=== PATIENT | male | born 1950 | race Caucasian/White ===

== ENCOUNTER 2022-09-23 02:22 | Emergency (ER) | payer OTHER, MEDICAID ==
[~2022-09-23] VITALS: Ht 177.8 cm; Wt 83.9 kg
[2022-09-23 02:27] VITALS: BP_SYST 140
[2022-09-23] MEDS ORDERED: MECLIZINE HCL 25 MG TABLET (ANITVERT) PO ONE (03:00)
[2022-09-23] MEDS ORDERED: ONDANSETRON HCL 4 MG/2 ML VIAL IVP ONE (03:00)
[2022-09-23 03:07] LABS: BASOPHILS # (AUTO) 0.1 K/uL (0.0-0.2); BASOPHILS % (AUTO) 0.7 % (0.0-2.0); EOSINOPHILS # (AUTO) 0.1 K/uL (0.0-0.4); EOSINOPHILS % (AUTO) 1.5 % (0.0-4.0); HEMATOCRIT 45.1 % (36-54); HEMOGLOBIN 14.7 g/dL (14.0-18.0); LYMPHOCYTES # (AUTO) 1.5 K/uL (1.0-5.5); LYMPHOCYTES % (AUTO) 20.1 % (20.5-51.5); MEAN CORPUSCULAR HEMOGLOBIN 27 pg (27-31); MEAN CORPUSCULAR HGB CONC 33 % (32-36); MEAN CORPUSCULAR VOLUME 82 fL (79.0-98.0); MONOCYTES # (AUTO) 0.5 K/uL (0.0-1.0); MONOCYTES % (AUTO) 6.2 % (1.7-9.3); NEUTROPHILS # (AUTO) 5.5 K/uL (1.8-7.7); NEUTROPHILS % (AUTO) 71.5 % (40.0-70.0); PLATELET COUNT (AUTO) 215 K/uL (130-430); RED BLOOD CELL COUNT(AUTO) 5.53 MIL/uL (4.2-6.2); RED CELL DISTRIBUTION WIDTH 14.5 % (9.0-15.0); WHITE BLOOD COUNT (AUTO) 7.7 K/uL (4.8-10.8)
[2022-09-23] MEDS ORDERED: iohexoL 350 mgI/mL, 100 ML INFUS..BTL IV ONE (03:12)
[2022-09-23 03:48] LABS: BILIRUBIN,URINE NEGATIVE (NEGATIVE); BLOOD, URINE NEGATIVE (NEGATIVE); CLARITY/URINE CLEAR (CLEAR); COLOR,URINE YELLOW (YELLOW); GLUCOSE,URINE NEGATIVE (NEGATIVE); KETONES,URINE NEGATIVE (NEGATIVE); LEUKOCYTE ESTERASE ,URINE NEGATIVE (NEGATIVE); NITRITE, URINE NEGATIVE (NEGATIVE); PH,URINE 5.5 (5.0-8.0); PROTEIN URINE NEGATIVE (NEGATIVE); UROBILINOGEN,URINE 0.2 (0.2-1.0)
[2022-09-23] MEDS ORDERED: DIPHENHYDRAMINE INJ 50 MG/ML VIAL IVP ONE (04:00)
[2022-09-23] MEDS ORDERED: METOCLOPRAMIDE HCL 10 MG/2 ML VIAL IVP ONE (04:00)
[2022-09-23] MEDS ORDERED: LISI-209 PO (04:03)
[2022-09-23] MEDS ORDERED: TOPXL100 PO (04:03)
[2022-09-23] MEDS ORDERED: FURO-150 PO (04:05)
[2022-09-23] MEDS ORDERED: WARF-66 PO (04:05)
[2022-09-23] MEDS ORDERED: POTA-197 PO (04:05)
[2022-09-23] MEDS ORDERED: ROSU20TA2 PO (04:05)
[2022-09-23 04:07] LABS: BARBITURATE, URINE NEGATIVE (NEG <=200); BENZODIAZEPINE, URINE NEGATIVE (NEG <=150); CANNABINOID, URINE NEGATIVE (NEG <=50); COCAINE, URINE NEGATIVE (NEG <=150); METHAMPHETAMINES SCREEN,URINE NEGATIVE (NEG <=500); OPIATE, URINE NEGATIVE (NEG <=100); PHENCYCLIDINE SCREEN,URINE NEGATIVE (NEG <=25); UR TRICYCLIC ANTIDEPRESSANTS NEGATIVE (NEG <=300); URINE AMPHETAMINE NEGATIVE (NEG <=500); URINE METHADONE NEGATIVE (NEG <=200); URINE OXYCODONE SCREEN NEGATIVE (NEG <=100); URINE PROPOXYPHENE SCREEN NEGATIVE (NEG <=300)
[2022-09-23 04:13] LABS: CALCIUM 8.2 mg/dL (8.4-11.0); CREATININE 1.25 mg/dL (0.55-1.30)
[2022-09-23 04:14] LABS: INR 3.3 (0.80-1.20)
[2022-09-23 04:17] LABS: ALBUMIN 3.2 g/dL (3.4-4.8); PROTHROMBIN TIME 31.9 SECS (9.5-12.5); TOTAL BILIRUBIN 0.3 mg/dL (0.0-1.0)
[2022-09-23 10:52] VITALS: BP_SYST 115
== END 2022-09-23 10:59 | disposition short-term general hospital (02) ==
LOC: SED 02:22
DX: R42 Dizziness and giddiness (principal); R11.0 Nausea; Z86.73 Personal history of transient ischemic attack (TIA), and cerebral infarction without residual deficits; Z86.79 Personal history of other diseases of the circulatory system; Z79.01 Long term (current) use of anticoagulants; Z79.899 Other long term (current) drug therapy; Z20.822 Contact with and (suspected) exposure to COVID-19
CPT/HCPCS: 99285; 70496; 96374; 71045; 96375; 87426; 80061; 80307; 80053; 82962; 85025; 85610; 85730; 86886; 86900; 86901; 36415; 93005; 70498; 81003; 70450; 76376; J8597; Q9967; J1200; J2765; J2405

== ENCOUNTER 2022-11-06 11:07 | Emergency (ER) | payer OTHER, MEDICAID ==
[~2022-11-06] VITALS: Ht 180.3 cm; Wt 90.7 kg
[2022-11-06 11:07] VITALS: BP_SYST 193; PULSE 62; RESP 18; TEMP 98; O2SAT 97
[~2022-11-06 11:07] MED LIST: FURO-150 PO; LISI-209 PO; POTA-197 PO; ROSU20TA2 PO; TOPXL100 PO; WARF-66 PO
--- NOTE | 2022-11-06 11:13 | NUR ---
ER at bedside examining patient.
--- NOTE | 2022-11-06 11:14 | NUR ---
accucheck machine shut down malfunction previous to pt departure to CT.
--- NOTE | 2022-11-06 11:15 | NUR ---
pt transferred to CT via [facility] accompanied by RN
[2022-11-06] MEDS ORDERED: iohexoL 350 mgI/mL, 100 ML INFUS..BTL IV ONE (11:22)
--- NOTE | 2022-11-06 11:33 | NUR ---
Patient returned from CT and IV started, Blood sugar obtained, ECG completed and MD reevaluated. NIHSS completed and swallow exam is OK at this time.
--- NOTE | 2022-11-06 11:34 | NUR ---
TELENEURO EVAL REQUESTED, ORDERED BY DR. CLOUD
--- NOTE | 2022-11-06 11:45 | NUR ---
Labs drawn and patient remains stable with slight improvement and increased focus at this time. Discussed with patient's and his daughter by phone patient's previous strokes. Information relayed to MD at this time.
[2022-11-06 11:54] LABS: BASOPHILS % (AUTO) 0.7 % (0.0-2.0); EOSINOPHILS # (AUTO) 0.2 K/uL (0.0-0.4); EOSINOPHILS % (AUTO) 3.5 % (0.0-4.0); HEMATOCRIT 39.8 % (36-54); HEMOGLOBIN 12.7 g/dL (14.0-18.0); LYMPHOCYTES # (AUTO) 1.6 K/uL (1.0-5.5); LYMPHOCYTES % (AUTO) 26.1 % (20.5-51.5); MEAN CORPUSCULAR HEMOGLOBIN 26 pg (27-31); MEAN CORPUSCULAR HGB CONC 32 % (32-36); MEAN CORPUSCULAR VOLUME 82 fL (79.0-98.0); MONOCYTES # (AUTO) 0.7 K/uL (0.0-1.0); MONOCYTES % (AUTO) 11.3 % (1.7-9.3); NEUTROPHILS # (AUTO) 3.6 K/uL (1.8-7.7); NEUTROPHILS % (AUTO) 58.4 % (40.0-70.0); PLATELET COUNT (AUTO) 227 K/uL (130-430); RED BLOOD CELL COUNT(AUTO) 4.87 MIL/uL (4.2-6.2); RED CELL DISTRIBUTION WIDTH 13.8 % (9.0-15.0); WHITE BLOOD COUNT (AUTO) 6.2 K/uL (4.8-10.8)
--- NOTE | 2022-11-06 12:00 | NUR ---
Patient improved from initial right sided facial droop noted by . RN noticed difficulty with patient's ambulation, and right side stability but as several minutes went on, patient seems to have resolved back to patient's baseline.
[2022-11-06 12:04] LABS: ANION GAP 6 (5-15); CHLORIDE 101 mmol/L (98-107); CREATININE 1.41 mg/dL (0.55-1.30); GLUCOSE 97 mg/dL (74-106); UREA NITROGEN, BLOOD 27 mg/dL (8-21)
[2022-11-06 12:08] LABS: GFR AFRICAN AMERICAN 64 mL/min (>90)
[2022-11-06 12:11] LABS: ALANINE AMINOTRANSFERASE 18 U/L (12-78); ALBUMIN 2.8 g/dL (3.4-4.8); ASPARTATE AMINOTRANSFERASE 20 U/L (10-37); TOTAL BILIRUBIN 0.3 mg/dL (0.0-1.0)
[2022-11-06 12:15] LABS: ALCOHOL, BLOOD < 3 mg/dL (<10)
--- NOTE | 2022-11-06 12:15 | NUR ---
NIHSS exam repeated with student nurses and found no changes since initial test.
[2022-11-06 12:28] LABS: INR 4.1 (0.80-1.20); PROTHROMBIN TIME 39.9 SECS (9.5-12.5)
[2022-11-06 12:45] VITALS: TEMP 97.6
--- NOTE | 2022-11-06 13:00 | NUR ---
Patient remains stable at this time. Patient's at bedside; chatted with to give her an update. Patient still awake and alert with no noticable changes at this time.
--- NOTE | 2022-11-06 14:00 | NUR ---
RN assisted patient to use urinal. Urine obtained and sent to lab for testing.
--- NOTE | 2022-11-06 15:00 | NUR ---
Spoke to patient's and answered additional questions about transfer to [place]. Patient states he feels ok at this time.
--- NOTE | 2022-11-06 15:15 | NUR ---
TRANSFER INFO DUNIA CASTANEDA RM: [id number] [phone] [facility] ETA [id number]
[2022-11-06] MEDS ORDERED: ASPIRIN 325 MG TABLET ONE (15:25)
[2022-11-06 15:29] LABS: BILIRUBIN,URINE NEGATIVE (NEGATIVE); BLOOD, URINE NEGATIVE (NEGATIVE); CLARITY/URINE CLEAR (CLEAR); COLOR,URINE YELLOW (YELLOW); GLUCOSE,URINE NEGATIVE (NEGATIVE); KETONES,URINE NEGATIVE (NEGATIVE); LEUKOCYTE ESTERASE ,URINE NEGATIVE (NEGATIVE); NITRITE, URINE NEGATIVE (NEGATIVE); PH,URINE 7.5 (5.0-8.0); PROTEIN URINE NEGATIVE (NEGATIVE); UROBILINOGEN,URINE 0.2 (0.2-1.0)
[2022-11-06] MEDS ORDERED: ASPIRIN 325 MG TABLET PO ONE (15:30)
--- NOTE | 2022-11-06 15:39 | NUR ---
Patient to be transferred to [facility]. Is being transferred due to higher level of care. Receiving facility has accepting physician and available space. ER physician has signed transfer form. Patient or responsible green party has agreed to transfer and signed form. Patient belongings inventoried and will be sent with patient. Copy of nursing notes, lab reports, EKG, Physicians Orders and X-rays to be sent with patient. Report called to JESSICA Galvez at receiving facility. Receiving physician is Dr. Elton Caldwell. [facility] ambulance service has been called for transfer. ETA is [id number].
[2022-11-06 16:26] LABS: BARBITURATE, URINE NEGATIVE (NEG <=200); BENZODIAZEPINE, URINE NEGATIVE (NEG <=150); CANNABINOID, URINE NEGATIVE (NEG <=50); COCAINE, URINE NEGATIVE (NEG <=150); METHAMPHETAMINES SCREEN,URINE NEGATIVE (NEG <=500); OPIATE, URINE NEGATIVE (NEG <=100); PHENCYCLIDINE SCREEN,URINE NEGATIVE (NEG <=25); UR TRICYCLIC ANTIDEPRESSANTS NEGATIVE (NEG <=300); URINE AMPHETAMINE NEGATIVE (NEG <=500); URINE METHADONE NEGATIVE (NEG <=200); URINE OXYCODONE SCREEN NEGATIVE (NEG <=100); URINE PROPOXYPHENE SCREEN NEGATIVE (NEG <=300)
[2022-11-06 16:32] VITALS: BP_SYST 160; PULSE 68; RESP 18; O2SAT 96
--- NOTE | 2022-11-06 16:35 | NUR ---
Patient transferred by ambulance to [facility] at this time.
== END 2022-11-06 16:35 | disposition short-term general hospital (02) ==
LOC: SED 11:07
DX: I63.9 Cerebral infarction, unspecified (principal); I48.20 Chronic atrial fibrillation, unspecified; N18.9 Chronic kidney disease, unspecified; M62.81 Muscle weakness (generalized); Z79.899 Other long term (current) drug therapy; Z20.822 Contact with and (suspected) exposure to COVID-19
CPT/HCPCS: 99291; 70496; 71045; 87426; 80307; 80053; 82962; 83880; 85025; 85610; 85730; 84484; 36415; 93005; 70498; 81003; 70450; 76376; Q9967; G0482